=== PATIENT | female | born 1970 | race Caucasian/White ===

== ENCOUNTER → 2019-07-10 08:45 | Outpatient (POV) | payer MEDICAID, SELFPAY ==
[2019-07-10 09:10] VITALS: BP 112/64; PULSE 60; RESP 18; TEMP 36.8; O2SAT 99; BMI 36.0
--- NOTE | 2019-07-10 15:48 | [facility].PMCON ---
Assessment and Plan (1) Back pain with sciatica Current visit: Yes Status: Acute Category: Medical Code(s): M54.9 - Dorsalgia, unspecified; M54.30 - Sciatica, unspecified side - Assessment and plan all Dx Assessment and Plan for all problems:: I discussed with the patient that we can potentially do some nerve blocks however she is can have to be released from her surgeon prior to this. She is been to call her surgeon tomorrow and will call us back if she gets released. Dr. Diaz has reviewed this note and agrees with this plan of care. This note was dictated using voice recognition software and may contain errors or omissions HPI - Data of Consult Consult date: 07/10/19 Requesting Physician: Kaitlyn Welch APRN Primary Care Provider: Eric Green - Consult Narrative Reason for consult: Back pain History of present illness: Ms. Brannon is a 48 year old female who presents today for consultation in regards to her back pain or sciatic nerve pain. Patient fell at the beginning of the month fracturing her elbow on the left side and her knee. She had external fixation and was kept in the hospital. She states during this time she had a flare in her sciatic pain. Patient is not in physical therapy. Patient has been going to Dr. Covarrubias in [place] for epidural injections and medial branch blocks. Patient is here today to see what treatment options are available for her. She is on gabapentin 800 mg 1 p.o. 3 times daily. She states that she has pain down her left leg. Patient and I discussed nerve blocks however at this time she has not been released by her surgeon. Patient is been to be seeing her surgeon hopefully tomorrow. We will request notes. CC: Kaitlyn Welch APRN [facility] History I have reviewed the patient's past medical history: Yes Medical History: Reports:: Diabetes Mellitus Type 2 Denies:: Cancer, MRSA *Have you ever received a pneumonia vaccine?: Yes *Have you received a flu vaccine this season?: Yes Other Medical History: Reports: Arthritis Laterality Cases: Left: Other Amputation: No Fractures: No - *Social History Smoking Status: Never smoker Alcohol Intake: never *Occupational Status:: other Housing: house *Travel in the last 8 weeks: None Family Hx:: Unable to obtain Review of Systems - Review of Systems ROS General: no recent weight change, no fever, no sleep disturbances Respiratory: no cough, no shortness of air, no recurring pulmonary infections Cardiovascular/Peripheral Vascular: No chest pain, No palpitations, no edema, no shortness of breath. Gastrointestinal: no new onset incontinence, normal bowel movements reported Genitourinary: no new onset incontinence Musculoskeletal: Back pain, left leg pain Psychiatric: normal mood/ affect Neurological: [denies new onset weakness in extremities], [denies new onset balance issues] Meds Home Medications Medication Instructions Recorded Confirmed Type Gabapentin [Gabapentin 400mg Cap] 800 mg PO TID 07/10/19 07/10/19 History Propranolol HCl 40 mg PO DAILY 07/10/19 07/10/19 History Zolpidem Tartrate [Ambien 5mg 5 mg PO HS 07/10/19 07/10/19 History tablet] Allergies Allergy/AdvReac Type Severity Reaction Status Date / Time No Known Allergies Allergy Verified 07/10/19 09:21 Objective Vital signs: Temp Pulse Resp BP Pulse Ox 98.2 F 60 18 112/64 99 07/10/19 09:10 07/10/19 09:10 07/10/19 09:10 07/10/19 09:10 07/10/19 09:10 Narrative: Physical Exam General: Alert and oriented x3, no acute distress, pleasant and cooperative, [on room air] Lungs: Resps E/U, Symmetrical chest expansion, Eyes: PERRL Musculoskeletal: Flexion and extension of lumbar spine somewhat guarded secondary to pain, strength in upper and lower extremities [5/5], unable to ambulate patient currently in wheelchair Neurological: speech clear, air brakes inspector equal, no gross sensory deficits
== END ==
PROVIDERS: PCP Pediatrics; Visit Provider Clinical Nurse Specialist Family Health
DX: M54.30 Sciatica, unspecified side (principal); M54.9 Dorsalgia, unspecified
CPT/HCPCS: 99202